=== PATIENT | male | born 1965 | race Caucasian/White ===

== ENCOUNTER 2018-08-29 12:19 | Emergency (ER) | payer BC, SELFPAY ==
[2018-08-29 12:21] VITALS: BP 112/87; PULSE 89; RESP 16; TEMP 36.4; O2SAT 99; BMI 28.5
--- NOTE | 2018-08-29 14:36 | RAD_ITS ---
STUDY: X-RAY - LEFT HUMERUS REASON FOR EXAM: Proximal posterior left humeral pain, fall. TECHNIQUE: 2 view(s) of the humerus. COMPARISON: None. FINDINGS: Normal visualized humerus. There is no demonstrated fracture or osseous destructive process. There is no demonstrated soft tissue abnormality. RAD/Humerus min 2 Views IMPRESSION: Normal x-ray examination of the left humerus. Electronically Signed: Derrick Nesbitt MD at 15:26 EST Tel , Service support ,
--- NOTE | 2018-08-29 14:36 | RAD_ITS ---
STUDY: X-RAY - LEFT SHOULDER REASON FOR EXAM: Proximal posterior left humeral pain and limited abduction, fall. TECHNIQUE: 4 view(s) of the shoulder. COMPARISON: None. FINDINGS: Normal glenohumeral articulation. Normal acromioclavicular joint. Normal acromion. Normal humeral head and visualized proximal humerus. The soft tissue structures are unremarkable. Normal visualized pulmonary apex. RAD/Shoulder min 2 Views IMPRESSION: Normal x-ray examination of the left shoulder. Electronically Signed: Derrick Nesbitt MD at 15:26 EST Tel , Service support ,
--- NOTE | 2018-08-29 14:49 | ED.VISSUMM ---
- ER Visit Summary Date of Service: 08/29/18 Chief Complaint: Fall, arm pain History of Present Illness: The patient is a 53 M who is otherwise healthy presents to the emergency department with left shoulder pain. Patient states that he tripped trying to climb over a fence last night. He fell and landed on his arm and most of the weight was into his left shoulder. He states he now has some pain with external rotation. He did not strike his head. Denies loss of consciousness. He denies any other symptoms. Physical Examination: Exam is relatively unremarkable. Patient does have some mild pain to palpation over the shoulder joint. There is no erythema or edema. Triceps feels intact. Bicep feels intact. His pulses are normal. There is no laxity or deformity. Test Results: [] Emergency Department Course and Treatment: Clinically, the patient's symptoms do seem consistent with a rotator cuff strain or tear. He does have pain with abduction. There is no gross laxity. Plain films are unremarkable. Patient is placed in a sling for comfort but was counseled on range of motion exercises to prevent frozen shoulder. He will be given a short course of analgesics and outpatient orthopedic follow-up. He is comfortable with this plan of care. Treatment Plan: [] Disposition: Discharge Impression: 1. Left rotator cuff strain This note was generated with [employer] dictation software. It may contain incorrect words, spelling, and punctuation that were not noted in review of the chart prior to signing ED Disposition - Plan for ED Patient: Disposition: Home or Assisted Living Instructions: ED Sprain Shoulder Prescriptions: Hydrocodone Bitart/Apap 5-325 [[place] 5MG-325MG] 1 tab PO Q6H PRN PRN 3 Days #8 tab PRN Reason: Pain Referrals: Jose Benitez DO [STAFF PHYSICIAN] -
== END 2018-08-29 15:25 | disposition home or self-care (01) ==
LOC: ED 15:25
PROVIDERS: Emergency Provider Emergency Medicine
DX: S46.012A Strain of muscle(s) and tendon(s) of the rotator cuff of left shoulder, initial encounter (principal); W01.0XXA Fall on same level from slipping, tripping and stumbling without subsequent striking against object, initial encounter; Y93.39 Activity, other involving climbing, rappelling and jumping off; Y92.9 Unspecified place or not applicable
CPT/HCPCS: 73030; 73060; 99283